=== PATIENT | male | born 1940 | race Caucasian/White ===

== ENCOUNTER 2021-03-05 13:26 | Inpatient (IN) | payer MEDICARE, MEDICAID ==
[~2021-03-05] VITALS: Ht 165.1 cm; Wt 93.4 kg
[2021-03-05] MEDS ORDERED: ACETAMINOPHEN 325MG TABLET PO STA (13:40)
[2021-03-05] MEDS ORDERED: VANCOMYCIN 1 G PREMIX 200 ML IV ONE (13:45)
[2021-03-05] MEDS ORDERED: SODIUM CHLORIDE 0.9% 1000ML BAG (SEPSIS BOLUS) IV ONE (13:45)
[2021-03-05] MEDS ORDERED: PIPERACILLIN/TAZ 3.375G PREMIX 50 ML IV ONE (13:45)
[2021-03-05 14:04] LABS: BASOPHILS % 0.4 % (0.0-2.0); EOSINOPHILS % 0.7 % (0.0-5.0); HEMATOCRIT. 23.6 % (42.0-52.0); LYMPHOCYTES % 12.1 % (20.0-50.0); MEAN CORPUSCULAR HEMOGLOBIN 31.4 pg (28.0-32.0); MEAN CORPUSCULAR VOLUME 92.5 fL (80.0-94.0); MEAN PLATELET VOLUME 8.6 fl (7.4-10.4); MONOCYTES % 10.2 % (2.0-8.0); NEUTROPHILS % 76.6 % (40.0-76.0); PLATELET 534 x1000/uL (130-400); RED BLOOD CELL COUNT 2.55 mill/uL (4.7-6.1); RED CELL DISTRIBUTION WIDTH 14.6 % (11.6-14.6)
[2021-03-05 14:08] LABS: CHLORIDE 85 mEq/L (98-107)
[2021-03-05 14:39] LABS: CLARITY URINE TURBID (CLEAR); COLOR URINE DARK YELLOW (YELLOW); KETONES URINE NEGATIVE (NEGATIVE); LEUKOCYTE ESTERASE URINE 3+ (NEGATIVE); NITRITE URINE NEGATIVE (NEGATIVE); OCCULT BLOOD URINE TRACE (NEGATIVE); PROTEIN URINE 1+ (NEGATIVE)
[2021-03-05] MEDS ORDERED: NOREPINEPHRINE 8MG/250ML PMX 250 ML IV PRN (16:30)
[2021-03-05] MEDS ORDERED: SODIUM POLYSTYRENE SULFONATE 15 G/60 ML BOT PO ONE (18:15)
[2021-03-05] MEDS ORDERED: SODIUM BICARBONATE 8.4% 1 MEQ/ML 50ML SYR IV ONE (18:15)
[2021-03-05] MEDS ORDERED: CALCIUM CHLORIDE 1GM/10ML SYR IV ONE (18:15)
[2021-03-05] MEDS ORDERED: DEXTROSE 50% WATER 50ML SYRINGE IV ONE (18:15)
[2021-03-05] MEDS ORDERED: INSULIN REGULAR (HUMULIN R) 300UNITS/3ML VIAL IV ONE (18:15)
[2021-03-05] MEDS ORDERED: ALBUTEROL (0.083%) 2.5MG/3ML NEB HHN ONE (18:15)
[2021-03-05] MEDS ORDERED: DEXTROSE 50% WATER 50ML SYRINGE IV PRN (20:00)
[2021-03-05] MEDS: INSULIN LISPRO 100 UNITS/ML SUBCUT SCH (21:00)
[2021-03-05] MEDS ORDERED: LEVETIRACETAM 500MG PREMIX 100 ML IV SCH (22:06)
[2021-03-05] MEDS: ENOXAPARIN 40MG/0.4ML SYR SUBCUT SCH (22:15)
[2021-03-05 23:00] VITALS: BP 126/75
[2021-03-05 23:01] VITALS: BP 126/75
[2021-03-05 23:15] VITALS: BP 131/110
[2021-03-05 23:31] VITALS: BP 162/67
[2021-03-05 23:46] VITALS: BP 157/103
[2021-03-06] VITALS (98 sets, daily range): BP systolic 62–181; BP diastolic 21–90
[2021-03-06] MEDS: CEFEPIME 2,000 MG in DEXT 5% WATER 100 ML IV SCH ×3 (00:01→21:11)
[2021-03-06] MEDS: ACETAMINOPHEN 650MG/20.3ML UDC PO PRN ×3 (00:01→20:24)
[2021-03-06] MEDS: LEVETIRACETAM 500MG PREMIX 100 ML IV SCH ×3 (00:42→20:16)
[2021-03-06] MEDS: ACETYLCYSTEINE 100MG/ML 10% VIAL 4ML INH SCH (00:44)
[2021-03-06] MEDS: PHENYLEPHRINE 100 MG in DEXT 5% WATER 240 ML IV PRN (00:50)
[2021-03-06 05:35] LABS: CHLORIDE 95 mEq/L (98-107)
[2021-03-06 05:36] LABS: BASOPHILS % 0.4 % (0.0-2.0); EOSINOPHILS % 0.6 % (0.0-5.0); HEMATOCRIT. 24.3 % (42.0-52.0); HEMOGLOBIN. 7.9 g/dL (14.0-18.0); LYMPHOCYTES % 11.3 % (20.0-50.0); MEAN CORPUSCULAR HEMOGLOBIN 30.5 pg (28.0-32.0); MEAN CORPUSCULAR VOLUME 93.4 fL (80.0-94.0); MEAN PLATELET VOLUME 7.4 fl (7.4-10.4); MONOCYTES % 10.2 % (2.0-8.0); NEUTROPHILS % 77.5 % (40.0-76.0); PLATELET 570 x1000/uL (130-400); RED CELL DISTRIBUTION WIDTH 13.9 % (11.6-14.6)
[2021-03-06 05:49] LABS: TOTAL IRON BINDING CAPACITY 154 ug/dL (250-450)
[2021-03-06] MEDS: INSULIN LISPRO 100 UNITS/ML SUBCUT SCH ×4 (06:26→20:17)
[2021-03-06] MEDS: BLOOD SUGAR DIAGNOSTIC STRIP TEST SCH ×4 (06:26→20:16)
[2021-03-06] MEDS: PANTOPRAZOLE SODIUM 40 MG/VIAL IV SCH (08:00)
[2021-03-06] MEDS ORDERED: VANCOMYCIN 1250MG in DEXTROSE 5% WATER 250ML IV SCH (12:00)
[2021-03-06] MEDS ORDERED: IPRATROPIUM/ALBUTEROL 0.5-3(2.5)MG/3ML NEB HHN PRN (12:00)
[2021-03-06] MEDS: IPRATROPIUM/ALBUTEROL 0.5-3(2.5)MG/3ML NEB HHN SCH (20:05)
[2021-03-06] MEDS: ENOXAPARIN 40MG/0.4ML SYR SUBCUT SCH (20:16)
[2021-03-07] VITALS (110 sets, daily range): BP systolic 66–230; BP diastolic 23–160
[2021-03-07] MEDS: IPRATROPIUM/ALBUTEROL 0.5-3(2.5)MG/3ML NEB HHN SCH ×6 (00:44→20:52)
[2021-03-07] MEDS: PHENYLEPHRINE 100 MG in DEXT 5% WATER 240 ML IV PRN ×2 (02:51→23:46)
[2021-03-07] MEDS: ACETAMINOPHEN 650MG/20.3ML UDC PO PRN ×3 (05:11→23:40)
[2021-03-07 06:10] LABS: BASOPHILS % 0.5 % (0.0-2.0); EOSINOPHILS % 0.9 % (0.0-5.0); HEMATOCRIT. 26.1 % (42.0-52.0); HEMOGLOBIN. 8.4 g/dL (14.0-18.0); LYMPHOCYTES % 15.2 % (20.0-50.0); MEAN CORPUSCULAR HEMOGLOBIN 30.5 pg (28.0-32.0); MEAN CORPUSCULAR VOLUME 94.6 fL (80.0-94.0); MEAN PLATELET VOLUME 8.1 fl (7.4-10.4); MONOCYTES % 10.3 % (2.0-8.0); NEUTROPHILS % 73.1 % (40.0-76.0); PLATELET 561 x1000/uL (130-400); RED BLOOD CELL COUNT 2.76 mill/uL (4.7-6.1); RED CELL DISTRIBUTION WIDTH 14.2 % (11.6-14.6)
[2021-03-07] MEDS: BLOOD SUGAR DIAGNOSTIC STRIP TEST SCH ×4 (06:10→20:55)
[2021-03-07 06:11] LABS: CHLORIDE 99 mEq/L (98-107)
[2021-03-07] MEDS: INSULIN LISPRO 100 UNITS/ML SUBCUT SCH ×4 (06:12→20:55)
[2021-03-07] MEDS: ACETYLCYSTEINE 100MG/ML 10% VIAL 4ML INH SCH ×2 (09:32→16:20)
[2021-03-07] MEDS: CEFEPIME 2,000 MG in DEXT 5% WATER 100 ML IV SCH ×2 (09:46→20:54)
[2021-03-07] MEDS: LEVETIRACETAM 500MG PREMIX 100 ML IV SCH ×2 (09:46→20:54)
[2021-03-07] MEDS: PANTOPRAZOLE SODIUM 40 MG/VIAL IV SCH (09:46)
[2021-03-07] MEDS ORDERED: INSULIN GLARGINE UD 100 UNITS/ML SYR SUBCUT SCH (11:00)
[2021-03-07 14:57] LABS: BG BASE EXCESS 7.3 mmol/L (-2.0-2.0); BG DEOXYHEMOGLOBIN 2.2 % (0.0-5.0); BG FRACTION INSPIRED OXYGEN 40; BG HCO3 ACT 30.6 mmol/L (22.0-26.0); BG METHEMOGLOBIN 0.2 % (0.0-1.5); BG OXYGEN SATURATION 97.8 % (92.0-98.5); BG OXYHEMOGLOBIN 97.6 % (94.0-97.0); BG PCO2 38.1 mmHg (35.0-45.0); BG PH 7.523 (7.350-7.450); BG SAMPLE SITE RIGHT RADIAL; BG TOTAL HEMOGLOBIN 8.8 g/dL (12.0-18.0); BG VENT MODE T PIECE
[2021-03-07] MEDS ORDERED: CLONIDINE 0.1MG TABLET PO PRN (15:30)
[2021-03-07] MEDS ORDERED: HYDRALAZINE 20MG/ML VIAL IV PRN (15:30)
[2021-03-07] MEDS: ENOXAPARIN 40MG/0.4ML SYR SUBCUT SCH (20:54)
[2021-03-08] VITALS (94 sets, daily range): BP systolic 67–144; BP diastolic 16–120
[2021-03-08] MEDS: ACETYLCYSTEINE 100MG/ML 10% VIAL 4ML INH SCH ×3 (01:23→16:38)
[2021-03-08] MEDS: IPRATROPIUM/ALBUTEROL 0.5-3(2.5)MG/3ML NEB HHN SCH ×6 (01:23→21:07)
[2021-03-08 05:40] LABS: HEMATOCRIT. 22.8 % (42.0-52.0); HEMOGLOBIN. 7.6 g/dL (14.0-18.0); MEAN CORPUSCULAR HEMOGLOBIN 31.1 pg (28.0-32.0); MEAN CORPUSCULAR VOLUME 93.4 fL (80.0-94.0); MEAN PLATELET VOLUME 7.1 fl (7.4-10.4); PLATELET 622 x1000/uL (130-400); RED BLOOD CELL COUNT 2.44 mill/uL (4.7-6.1); RED CELL DISTRIBUTION WIDTH 14.4 % (11.6-14.6)
[2021-03-08 05:41] LABS: CHLORIDE 101 mEq/L (98-107)
[2021-03-08] MEDS: BLOOD SUGAR DIAGNOSTIC STRIP TEST SCH ×4 (06:21→21:09)
[2021-03-08] MEDS: INSULIN LISPRO 100 UNITS/ML SUBCUT SCH ×4 (06:22→21:22)
[2021-03-08] MEDS ORDERED: POTASSIUM CHLORIDE 20MEQ/PACKET PO NR (08:00)
[2021-03-08] MEDS ORDERED: DEXTROSE 50% WATER 50ML SYRINGE IV PRN (08:15)
[2021-03-08] MEDS: PANTOPRAZOLE SODIUM 40 MG/VIAL IV SCH (08:39)
[2021-03-08] MEDS: GUAIFENESIN 200MG/10ML SUGAR FREE UDC PO PRN ×3 (08:39→23:46)
[2021-03-08] MEDS: CEFEPIME 2,000 MG in DEXT 5% WATER 100 ML IV SCH ×2 (08:39→21:19)
[2021-03-08] MEDS: LEVETIRACETAM 250MG TABLET PO SCH ×2 (08:39→21:21)
[2021-03-08 08:43] LABS: PLATELET ESTIMATE INCREASED
[2021-03-08] MEDS: INSULIN GLARGINE UD 100 UNITS/ML SYR SUBCUT SCH (10:03)
[2021-03-08] MEDS: VANCOMYCIN 1250MG in DEXTROSE 5% WATER 250ML IV SCH (11:25)
[2021-03-08] MEDS: ACETAMINOPHEN 650MG/20.3ML UDC PO PRN ×2 (11:25→23:46)
[2021-03-08] MEDS ORDERED: METOPROLOL TARTRATE 5MG/5ML VIAL IV PRN ×2 (12:00→18:00)
[2021-03-08] MEDS ORDERED: AMIODARONE HCL 150 MG in DEXT 5% WATER 97 ML IV NR (14:45)
[2021-03-08] MEDS ORDERED: NOREPINEPHRINE 8 MG in DEXT 5% WATER 242 ML IV PRN (14:45)
[2021-03-08] MEDS ORDERED: AMIODARONE HCL 50MG/ML 3ML VIAL IV ONE (14:45)
[2021-03-08] MEDS ORDERED: AMIODARONE HCL 150 MG in DEXT 5% WATER 100 ML IV NR (15:00)
[2021-03-08] MEDS ORDERED: AMIODARONE HCL 900 MG in DEXT 5% WATER 482 ML IV SCH (15:30)
[2021-03-08 16:49] LABS: T4 FREE 1.32 ng/dL (0.76-1.46)
[2021-03-08] MEDS: ENOXAPARIN 40MG/0.4ML SYR SUBCUT SCH (20:22)
[2021-03-09] VITALS (96 sets, daily range): BP systolic 59–252; BP diastolic 26–184
[2021-03-09] MEDS: IPRATROPIUM/ALBUTEROL 0.5-3(2.5)MG/3ML NEB HHN SCH ×6 (00:15→20:43)
[2021-03-09] MEDS: ACETYLCYSTEINE 100MG/ML 10% VIAL 4ML INH SCH ×4 (00:15→20:43)
[2021-03-09] MEDS: PHENYLEPHRINE 100 MG in DEXT 5% WATER 240 ML IV PRN ×2 (00:53→17:19)
[2021-03-09] MEDS: GUAIFENESIN 200MG/10ML SUGAR FREE UDC PO PRN (03:55)
[2021-03-09 05:16] LABS: HEMATOCRIT. 21.7 % (42.0-52.0); MEAN CORPUSCULAR HEMOGLOBIN 30.4 pg (28.0-32.0); MEAN CORPUSCULAR VOLUME 93.7 fL (80.0-94.0); MEAN PLATELET VOLUME 7.3 fl (7.4-10.4); PLATELET 575 x1000/uL (130-400); RED BLOOD CELL COUNT 2.31 mill/uL (4.7-6.1); RED CELL DISTRIBUTION WIDTH 14.1 % (11.6-14.6)
[2021-03-09 05:22] LABS: CHLORIDE 100 mEq/L (98-107)
[2021-03-09] MEDS: BLOOD SUGAR DIAGNOSTIC STRIP TEST SCH ×4 (06:50→21:58)
[2021-03-09] MEDS: INSULIN LISPRO 100 UNITS/ML SUBCUT SCH ×4 (07:00→21:58)
[2021-03-09] MEDS: CEFEPIME 2,000 MG in DEXT 5% WATER 100 ML IV SCH (08:13)
[2021-03-09] MEDS: PANTOPRAZOLE SODIUM 40 MG/VIAL IV SCH (08:13)
[2021-03-09] MEDS: LEVETIRACETAM 250MG TABLET PO SCH ×2 (08:13→21:51)
[2021-03-09] MEDS: ACETAMINOPHEN 650MG/20.3ML UDC PO PRN (08:21)
[2021-03-09 09:53] LABS: PLATELET ESTIMATE INCREASED
[2021-03-09] MEDS ORDERED: MAGNESIUM 2 G PREMIX 50 ML IV NR (10:00)
[2021-03-09] MEDS: AMIODARONE HCL 200 MG TABLET PO SCH ×2 (10:04→21:51)
[2021-03-09] MEDS: INSULIN GLARGINE UD 100 UNITS/ML SYR SUBCUT SCH (10:05)
[2021-03-09] MEDS: MEROPENEM 1,000 MG in SODIUM CHLORIDE 0.9% 100 ML IV SCH ×3 (11:32→22:01)
[2021-03-09] MEDS: VANCOMYCIN 1250MG in DEXTROSE 5% WATER 250ML IV SCH (12:28)
[2021-03-10] VITALS (97 sets, daily range): BP systolic 73–144; BP diastolic 50–96
[2021-03-10] MEDS: IPRATROPIUM/ALBUTEROL 0.5-3(2.5)MG/3ML NEB HHN SCH ×6 (00:39→21:56)
[2021-03-10 04:49] LABS: HEMATOCRIT. 23.3 % (42.0-52.0); HEMOGLOBIN. 7.6 g/dL (14.0-18.0); MEAN CORPUSCULAR HEMOGLOBIN 29.6 pg (28.0-32.0); MEAN CORPUSCULAR VOLUME 91.4 fL (80.0-94.0); MEAN PLATELET VOLUME 7.2 fl (7.4-10.4); PLATELET 702 x1000/uL (130-400); RED BLOOD CELL COUNT 2.55 mill/uL (4.7-6.1); RED CELL DISTRIBUTION WIDTH 14.6 % (11.6-14.6)
[2021-03-10 05:00] LABS: CHLORIDE 99 mEq/L (98-107)
[2021-03-10] MEDS: MEROPENEM 1,000 MG in SODIUM CHLORIDE 0.9% 100 ML IV SCH ×3 (05:58→21:50)
[2021-03-10] MEDS: INSULIN LISPRO 100 UNITS/ML SUBCUT SCH ×4 (06:00→21:00)
[2021-03-10] MEDS: BLOOD SUGAR DIAGNOSTIC STRIP TEST SCH ×4 (06:39→21:50)
[2021-03-10] MEDS: PHENYLEPHRINE 100 MG in DEXT 5% WATER 240 ML IV PRN (07:53)
[2021-03-10] MEDS: LEVETIRACETAM 250MG TABLET PO SCH ×2 (08:27→21:50)
[2021-03-10] MEDS: PANTOPRAZOLE SODIUM 40 MG/VIAL IV SCH (08:27)
[2021-03-10] MEDS: AMIODARONE HCL 200 MG TABLET PO SCH ×2 (08:27→21:49)
[2021-03-10] MEDS: ACETYLCYSTEINE 100MG/ML 10% VIAL 4ML INH SCH ×2 (08:35→15:37)
[2021-03-10] MEDS: INSULIN GLARGINE UD 100 UNITS/ML SYR SUBCUT SCH (09:48)
[2021-03-10 10:30] LABS: PLATELET ESTIMATE INCREASED
[2021-03-11] VITALS (95 sets, daily range): BP systolic 71–138; BP diastolic 19–106
[2021-03-11] MEDS: IPRATROPIUM/ALBUTEROL 0.5-3(2.5)MG/3ML NEB HHN SCH ×6 (01:20→19:58)
[2021-03-11] MEDS: ACETYLCYSTEINE 100MG/ML 10% VIAL 4ML INH SCH ×2 (01:21→08:36)
[2021-03-11] MEDS: ACETAMINOPHEN 650MG/20.3ML UDC PO PRN (03:10)
[2021-03-11] MEDS: PHENYLEPHRINE 100 MG in DEXT 5% WATER 240 ML IV PRN ×2 (04:46→17:47)
[2021-03-11 04:49] LABS: BASOPHILS % 0.5 % (0.0-2.0); EOSINOPHILS % 0.6 % (0.0-5.0); HEMATOCRIT. 22.8 % (42.0-52.0); HEMOGLOBIN. 7.3 g/dL (14.0-18.0); LYMPHOCYTES % 13.5 % (20.0-50.0); MEAN CORPUSCULAR HEMOGLOBIN 30.3 pg (28.0-32.0); MEAN CORPUSCULAR VOLUME 94.6 fL (80.0-94.0); MONOCYTES % 10.5 % (2.0-8.0); NEUTROPHILS % 74.9 % (40.0-76.0); PLATELET 560 x1000/uL (130-400); RED BLOOD CELL COUNT 2.41 mill/uL (4.7-6.1); RED CELL DISTRIBUTION WIDTH 14.6 % (11.6-14.6)
[2021-03-11 05:05] LABS: CHLORIDE 105 mEq/L (98-107)
[2021-03-11] MEDS: MEROPENEM 1,000 MG in SODIUM CHLORIDE 0.9% 100 ML IV SCH ×3 (05:05→21:03)
[2021-03-11] MEDS: INSULIN LISPRO 100 UNITS/ML SUBCUT SCH ×4 (05:06→21:00)
[2021-03-11] MEDS: BLOOD SUGAR DIAGNOSTIC STRIP TEST SCH ×4 (05:07→21:13)
[2021-03-11] MEDS: PANTOPRAZOLE SODIUM 40 MG/VIAL IV SCH (08:52)
[2021-03-11] MEDS: LEVETIRACETAM 250MG TABLET PO SCH ×2 (08:53→20:55)
[2021-03-11] MEDS: AMIODARONE HCL 200 MG TABLET PO SCH (08:53)
[2021-03-11] MEDS: INSULIN GLARGINE UD 100 UNITS/ML SYR SUBCUT SCH (10:40)
[2021-03-11] MEDS ORDERED: VANCOMYCIN 1250MG in DEXTROSE 5% WATER 250ML IV NR (12:00)
[2021-03-11] MEDS: MIDODRINE HCL 5MG TABLET PO SCH ×2 (12:39→17:46)
[2021-03-11] MEDS: AMIODARONE HCL 200 MG TABLET GT SCH (20:55)
[2021-03-12] VITALS (92 sets, daily range): BP systolic 83–142; BP diastolic 42–70
[2021-03-12] MEDS: IPRATROPIUM/ALBUTEROL 0.5-3(2.5)MG/3ML NEB HHN SCH ×6 (00:12→16:38)
[2021-03-12] MEDS: ACETAMINOPHEN 650MG/20.3ML UDC PO PRN (00:12)
[2021-03-12 05:44] LABS: BASOPHILS % 0.7 % (0.0-2.0); EOSINOPHILS % 1.6 % (0.0-5.0); LYMPHOCYTES % 16.4 % (20.0-50.0); MEAN CORPUSCULAR HEMOGLOBIN 31.2 pg (28.0-32.0); MEAN CORPUSCULAR VOLUME 94.3 fL (80.0-94.0); MEAN PLATELET VOLUME 7.4 fl (7.4-10.4); NEUTROPHILS % 71.3 % (40.0-76.0); PLATELET 455 x1000/uL (130-400); RED BLOOD CELL COUNT 2.15 mill/uL (4.7-6.1); RED CELL DISTRIBUTION WIDTH 14.6 % (11.6-14.6)
[2021-03-12 05:46] LABS: CHLORIDE 108 mEq/L (98-107)
[2021-03-12] MEDS: MEROPENEM 1,000 MG in SODIUM CHLORIDE 0.9% 100 ML IV SCH ×3 (05:47→21:38)
[2021-03-12] MEDS: BLOOD SUGAR DIAGNOSTIC STRIP TEST SCH ×4 (05:54→21:52)
[2021-03-12 06:17] LABS: HEMATOCRIT. 20.3 % (42.0-52.0); HEMOGLOBIN. 6.7 g/dL (14.0-18.0)
[2021-03-12] MEDS: INSULIN LISPRO 100 UNITS/ML SUBCUT SCH ×4 (07:00→21:00)
[2021-03-12] MEDS: PANTOPRAZOLE SODIUM 40 MG/VIAL IV SCH (08:04)
[2021-03-12] MEDS: MIDODRINE HCL 5MG TABLET PO SCH ×3 (08:04→16:08)
[2021-03-12] MEDS: AMIODARONE HCL 200 MG TABLET GT SCH ×2 (08:04→21:38)
[2021-03-12] MEDS: LEVETIRACETAM 250MG TABLET PO SCH ×2 (08:04→21:37)
[2021-03-12] MEDS: INSULIN GLARGINE UD 100 UNITS/ML SYR SUBCUT SCH (10:49)
[2021-03-12 17:14] LABS: HEMATOCRIT 26.6 % (42.0-52.0); HEMOGLOBIN 8.7 g/dL (14.0-18.0)
[2021-03-13] VITALS (14 sets, daily range): BP systolic 97–124; BP diastolic 50–74
[2021-03-13] MEDS: IPRATROPIUM/ALBUTEROL 0.5-3(2.5)MG/3ML NEB HHN SCH ×5 (00:36→16:33)
[2021-03-13] MEDS ORDERED: VANCOMYCIN 1250MG in DEXTROSE 5% WATER 250ML IV SCH (02:00)
[2021-03-13] MEDS: ACETAMINOPHEN 650MG/20.3ML UDC PO PRN (02:19)
[2021-03-13] MEDS: MEROPENEM 1,000 MG in SODIUM CHLORIDE 0.9% 100 ML IV SCH ×2 (05:03→15:15)
[2021-03-13] MEDS: BLOOD SUGAR DIAGNOSTIC STRIP TEST SCH ×3 (07:30→17:30)
[2021-03-13 09:28] LABS: BG BASE EXCESS 2.5 mmol/L (-2.0-2.0); BG CARBOXYHEMOGLOBIN 0.3 % (0.5-1.5); BG DEOXYHEMOGLOBIN 5.1 % (0.0-5.0); BG HCO3 ACT 25.4 mmol/L (22.0-26.0); BG METHEMOGLOBIN 0.1 % (0.0-1.5); BG OXYGEN SATURATION 94.9 % (92.0-98.5); BG OXYHEMOGLOBIN 94.5 % (94.0-97.0); BG PCO2 32.7 mmHg (35.0-45.0); BG PH 7.508 (7.350-7.450); BG PO2 74.3 mmHg (75.0-100.0); BG SAMPLE SITE RIGHT RADIAL; BG VENT MODE VENT - AC
[2021-03-13 09:34] LABS: CHLORIDE 109 mEq/L (98-107)
[2021-03-13] MEDS: MIDODRINE HCL 5MG TABLET PO SCH ×3 (10:10→19:08)
[2021-03-13] MEDS: PANTOPRAZOLE SODIUM 40 MG/VIAL IV SCH (10:11)
[2021-03-13] MEDS: LEVETIRACETAM 250MG TABLET PO SCH (10:11)
[2021-03-13] MEDS: AMIODARONE HCL 200 MG TABLET GT SCH (10:11)
[2021-03-13] MEDS: INSULIN GLARGINE UD 100 UNITS/ML SYR SUBCUT SCH (10:12)
[2021-03-13] MEDS: INSULIN LISPRO 100 UNITS/ML SUBCUT SCH ×3 (10:13→18:00)
[2021-03-13] MEDS ORDERED: MAGNESIUM 2 G PREMIX 50 ML IV NR (12:00)
[2021-03-13 12:53] LABS: BASOPHILS % 0.6 % (0.0-2.0); EOSINOPHILS % 0.8 % (0.0-5.0); HEMATOCRIT. 25.8 % (42.0-52.0); HEMOGLOBIN. 8.6 g/dL (14.0-18.0); LYMPHOCYTES % 14.6 % (20.0-50.0); MEAN CORPUSCULAR HEMOGLOBIN 29.8 pg (28.0-32.0); MEAN CORPUSCULAR VOLUME 89.3 fL (80.0-94.0); MEAN PLATELET VOLUME 7.6 fl (7.4-10.4); MONOCYTES % 13.4 % (2.0-8.0); NEUTROPHILS % 70.6 % (40.0-76.0); PLATELET 358 x1000/uL (130-400); RED BLOOD CELL COUNT 2.89 mill/uL (4.7-6.1); RED CELL DISTRIBUTION WIDTH 16.7 % (11.6-14.6)
[2021-03-13] MEDS ORDERED: ACETYLCYSTEINE 100MG/ML 10% VIAL 4ML INH SCH (14:00)
== END 2021-03-13 20:50 | disposition short-term general hospital (02) | DRG 871 ==
LOC: ER 13:26 → MICUNO 18:53 → ENRESERV 20:31 → 5EST 03-13 01:50
PROVIDERS: ADMIT Internal Medicine; ATTEND Internal Medicine
PROC: B54BZZA Ultrasonography of Right Lower Extremity Veins, Guidance (ICD-10-PCS; 2021-03-05)
PROC: 06HY33Z Insertion of Infusion Device into Lower Vein, Percutaneous Approach (ICD-10-PCS; 2021-03-05)
PROC: B54MZZA Ultrasonography of Right Upper Extremity Veins, Guidance (ICD-10-PCS; 2021-03-09)
PROC: 05HY33Z Insertion of Infusion Device into Upper Vein, Percutaneous Approach (ICD-10-PCS; 2021-03-09)
PROC: 30233N1 Transfusion of Nonautologous Red Blood Cells into Peripheral Vein, Percutaneous Approach (ICD-10-PCS; principal; 2021-03-12)
PROC: 5A1945Z Respiratory Ventilation, 24-96 Consecutive Hours (ICD-10-PCS; 2021-03-12)
DX: A41.81 Sepsis due to Enterococcus (principal); E43 Unspecified severe protein-calorie malnutrition; J96.21 Acute and chronic respiratory failure with hypoxia; J18.9 Pneumonia, unspecified organism; R65.21 Severe sepsis with septic shock; N39.0 Urinary tract infection, site not specified; E87.1 Hypo-osmolality and hyponatremia; G93.1 Anoxic brain damage, not elsewhere classified; I31.3 Pericardial effusion (noninflammatory); I48.92 Unspecified atrial flutter; I10 Essential (primary) hypertension; E87.5 Hyperkalemia; D64.9 Anemia, unspecified; G40.909 Epilepsy, unspecified, not intractable, without status epilepticus; E11.65 Type 2 diabetes mellitus with hyperglycemia; Z20.822 Contact with and (suspected) exposure to COVID-19; E78.00 Pure hypercholesterolemia, unspecified; E78.5 Hyperlipidemia, unspecified; R59.0 Localized enlarged lymph nodes; M21.379 Foot drop, unspecified foot; R13.10 Dysphagia, unspecified; Z79.899 Other long term (current) drug therapy; Z93.0 Tracheostomy status; Z93.1 Gastrostomy status; Z68.34 Body mass index [BMI] 34.0-34.9, adult
CPT/HCPCS: 36415; 36600; 71045; 71250; 74176; 76937; 80048; 80053; 80061; 80202; 81003; 82270; 82375; 82542; 82805; 82962; 83036; 83540; 83550; 83605; 83735; 83880; 84145; 84439; 84443; 84484; 85014; 85018; 85025; 86850; 86900; 86920; 87070; 87186; 87426; 93005; 93306; 93970; 94002; 94003; 94640; 99291; A6261; C1725; C1892; C9113; J0282; J0360; J0692; J1650; J1815; J1953; J2185; J2370; J2543; J3370; J3475; J3490; J7030; J7040; J7050; J7060; J7608; P9016